=== PATIENT | female | born 1980 | race African-American/Black ===

== ENCOUNTER 2019-12-07 12:56 | Emergency (ER) | payer SELFPAY ==
[~2019-12-07] VITALS: Ht 180.3 cm; Wt 72.6 kg
--- NOTE | 2019-12-07 13:18 | Emergency Department Note ---
History of Present Illnes History of Present Illness Chief Complaint: Chest Pain History of Present Illness This is a 39 year old female PATIENT IN FROM HOME WITH COMPLAINTS OF LOSS OF TA CAMILO AND SMELL SINCE YESTERDAY; STATES STARTED WITH CHEST PAIN APPROX 2 HOURS AGO, RATES 5/10. PATIENT ALERT AND ORIENTED, RESP EVEN AND NONLABORED, AMBULATORY WITH NO ASSISTANCE, O2 SATS 100% ON ROOM AIR. Historian: Patient Arrival Mode: Car Steamer Tender Required: No Onset (how long ago): day(s) (1) Location: CHEST Quality: MILD DISCOMFORT Radiation: Reports non-radiation Severity: mild Onset quality: gradual Timing of current episode: constant Progression: unchanged Chronicity: new Context: Denies recent illness Relieving factors: none Exacerbating factors: none Associated symptoms: Reports denies other symptoms Treatments prior to arrival: none Past Medical/Family History Physician Review I have reviewed the patient's past medical and family history. Any updates have been documented here. Past Medical History Recent Fever: No Clinical Suspicion of Infectio: No New/Unexplained Change in Ment: No Past Medical History: None Past Surgical History: Other Surgery: RIGHT FOOT SURGERY Social History Smoking Cessation: Current every day smoker Counseling Performed: Yes Alcohol Use: Social Any Illegal Drug Use: No TB Exposure/Symptoms: No Physically hurt or threatened: No Other Any Pre-Existing Lines (PICC,: No Review of Systems Review of Systems Constitutional: Reports as per HPI EENTM: Reports as per HPI Cardiovascular: Reports no symptoms Respiratory: Reports no symptoms Gastrointestinal: Reports no symptoms Genitourinary: Reports no symptoms Musculoskeletal: Reports no symptoms Integumentary: Reports no symptoms Neurological: Reports no symptoms Psychological: Reports no symptoms Endocrine: Reports no symptoms Hematological/Lymphatic: Reports no symptoms Physical Exam Related Data Allergies: Coded Allergies: No Known Allergies (Unverified , 12/07/19) Triage Vital Signs Vital Signs Date Time Temp Pulse Resp B/P (MAP) Pulse Ox O2 Delivery O2 Flow Rate FiO2 12/07/19 12:58 98.4 75 18 121/77 100 Room Air Vital signs reviewed: Yes Physical Exam CONSTITUTIONAL Constitutional: Present well-developed, Present well-nourished HENT HENT: Present normocephalic, Present atraumatic, Present oropharynx clear/moist, Present nose normal HENT L/R: Present left ext ear normal, Present right ext ear normal EYES Eyes: Reports PERRL, Reports conjunctivae normal NECK Neck: Present ROM normal PULMONARY Pulmonary: Present effort normal, Present breath sounds normal CARDIOVASCULAR Cardiovascular: Present regular rhythm, Present heart sounds normal, Present capillary refill normal, Present normal rate GASTROINTESTINAL Abdominal: Present soft, Present nontender, Present bowel sounds normal GENITOURINARY Genitourinary: Present exam deferred SKIN Skin: Present warm, Present dry MUSCULOSKELETAL Musculoskeletal: Present ROM normal NEUROLOGICAL Neurological: Present alert, Present oriented x 3, Present no gross motor or sensory deficits PSYCHOLOGICAL Psychological: Present mood/affect normal, Present judgement normal Procedures 12 Lead ECG Interpretation ECG Interpretation : ECG: ECG 1 Steamer Tender: Interpreted by ED physician Date: Dec 07, 2019 Time: 13:11 Rhythm: sinus rhythm Rate: normal QRS axis: normal ST segments normal: Yes T waves normal: Yes Clinical Impression: normal ECG Assessment & Plan Medical Decision Making MDM ECG ONLY - R/O STEMI Reassessment Reassessment ECG NORMAL, LOSS OF TASTE/SMEEL - VITALS NORMAL, PT IN NO DISTRESS - DC HOME, RECOMMEND GETTING COVID TEST, SELF-QUARANTINE, TYL/MOTRIN, F/U PCP Assessment & Plan Final Impression: (1) COVID-19 Depart Disposition: HOME, SELF-CARE Last Vital Signs Date Time Temp Pulse Resp B/P (MAP) Pulse Ox O2 Delivery O2 Flow Rate FiO2 12/07/19 12:58 98.4 75 18 121/77 100 Room Air TONNY LAUREANO MD Dec 07, 2019 13:18
== END 2019-12-07 13:47 | disposition home or self-care (01) ==
LOC: ER 13:47
DX: U07.1 COVID-19 (principal); R07.89 Other chest pain; F17.210 Nicotine dependence, cigarettes, uncomplicated
CPT/HCPCS: 93005; 99282